=== PATIENT | female | born 1995 | race Caucasian/White ===

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

== ENCOUNTER → 2017-04-12 | Outpatient (CLI) | payer BC ==
[2017-04-12 17:48] LABS: BASO % 0.7 %; BASO ABS # 0.04 K/uL (0-0.2); COMPLETE YES; EOS % 2.6 %; IG% 0.2 %; LYMPH ABS # 1.93 K/uL (1.2-3.4); MEAN CELL VOLUME 92.2 fL (80-100); MEAN CORPUSCULAR HEMOGLOBIN 31.7 pg (25-34); MEAN CORPUSCULAR HGB CONC 34.4 g/dl (32-36); MEAN PLATELET VOLUME 10.9 fL (7.4-10.4); MONO % 10.6 %; NEUT % 52.9 %; PLATELET COUNT 269 K/uL (130-400); RED BLOOD COUNT 4.23 M/uL (4.2-5.4); WHITE BLOOD COUNT 5.84 K/uL (4.8-10.8)
[2017-04-12 17:57] LABS: ALT/SGPT 45 U/L (12-78); AST/SGOT 29 U/L (15-37); BLOOD UREA NITROGEN 11 mg/dl (7-18); BUN/CREATININE RATIO 13.9 (10-20); CALCIUM 8.8 mg/dl (8.5-10.1); CARBON DIOXIDE 28 mmol/L (21-32); CHLORIDE 109 mmol/L (98-107); CREATININE 0.81 mg/dl (0.60-1.20); GLUCOSE 65 mg/dl (70-99); POTASSIUM 4.4 mmol/L (3.5-5.1); SODIUM 142 mmol/L (136-145)
[2017-04-12 18:10] LABS: ALKALINE PHOSPHATASE 76 U/L (45-117); THYROID STIMULATING HORMONE 0.889 uIu/ml (0.300-4.500); TOTAL IRON BINDING CAPACITY 362 mcg/dl (250-450)
[2017-04-12 19:53] LABS: LYME DISEASE AB IGG NEG (NEG); LYME DISEASE AB IGM NEG (NEG)
== END | disposition home or self-care (01) ==
LOC: C.LABMFLN 13:54
PROVIDERS: ATTEND Physician Assistant
DX: R53.83 Other fatigue (principal); R11.0 Nausea

== ENCOUNTER → 2017-07-06 | Outpatient (CLI) | payer BC ==
--- NOTE | 2017-07-06 14:38 | DIAGNOSTIC IMAGING REPORT ---
L LOWER EXT JOINT WITHOUT CLINICAL HISTORY: L MEDIAL KNEE PAIN pain TECHNIQUE: Multiaxial MRI acquisition COMPARISON STUDY: None FINDINGS: Linear screw seen in the medial femoral epicondylar region. Signal characteristics the osseous structures indicate a contusion of the lateral tibial plateau at the anterior aspect. There is a slight contusion of the lateral margin of the lateral femoral condyle. Anterior and posterior cruciate ligaments are intact. The medial and lateral collateral ligaments are intact. There may be a tiny avulsion from the superior patella. IMPRESSION: 1. Contusion anterior aspect lateral tibial plateau. 2. Small contusion anterolateral aspect lateral femoral condyle. 3. Tiny avulsion superior patella. 4. Metallic screw placed at the medial femoral epicondylar region The above report was generated using voice recognition software. It may contain grammatical, syntax or spelling errors. Electronically signed by: Oskar Baca M.D. 07/06/2017 2:36 PM Dictated Date/Time: 07/06/2017 2:30 PM
== END | disposition home or self-care (01) ==
LOC: C.MRI 13:25
PROVIDERS: ATTEND Physician Assistant
DX: S80.02XA Contusion of left knee, initial encounter (principal); S82.092A Other fracture of left patella, initial encounter for closed fracture; Z98.890 Other specified postprocedural states; X58.XXXA Exposure to other specified factors, initial encounter

== ENCOUNTER → 2017-09-26 | Outpatient (CLI) | payer BC | END | disposition home or self-care (01) | LOC: C.LABMFLN 15:31 | PROVIDERS: ATTEND Physician Assistant | DX: R35.0 Frequency of micturition (principal) ==